=== PATIENT | female | born 1985 | race Two or more races ===

== ENCOUNTER 2017-03-26 12:31 | Emergency (ER) | payer SELFPAY ==
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
--- NOTE | 2017-03-26 13:39 | RAD ---
Indication: Neck pain. 5 views of the cervical spine demonstrates vertebral bodies to be normal in height. There is straightening of the normal lordosis. Disc spaces all well-preserved. Spinal canal appears to be intact. IMPRESSION: No fracture of the cervical spine is noted. There is straightening of the normal lordosis.
[2017-03-26 15:20] VITALS: BP 118/59
== END 2017-03-26 15:18 | disposition home or self-care (01) ==
LOC: ED 12:31
DX: S16.1XXA Strain of muscle, fascia and tendon at neck level, initial encounter (principal); V43.52XA Car driver injured in collision with other type car in traffic accident, initial encounter; Y93.9 Activity, unspecified; Y92.9 Unspecified place or not applicable
CPT/HCPCS: 72050; 99282